=== PATIENT | female | born 1960 | race Caucasian/White ===

== ENCOUNTER → 2023-11-07 06:56 | Outpatient (REF) | payer OTHER, SELFPAY ==
[2023-11-07 08:22] LABS: Albumin 4.7 g/dl (3.5-5.0); Blood Urea Nitrogen 44 mg/dl (7-17); Calcium 9.9 mg/dl (8.4-10.2); Carbon Dioxide 24 mmol/L (22-30); Chloride 109 mmol/L (98-107); Glucose 87 mg/dl (70-99); Phosphorus 4.8 mg/dl (2.5-4.5); Potassium 5.5 mmol/L (3.5-5.1); Sodium 139 mmol/L (135-145); eGFR 23.16
[2023-11-07 11:19] LABS: Protein/creatinine Ratio 1.3; Urine Protein 62 mg/dl
== END ==
LOC: REG 06:56
PROVIDERS: ATTENDING PHYSICIAN Specialist; FAMILY PHYSICIAN Family Medicine
DX: I10 Essential (primary) hypertension (principal)
CPT/HCPCS: 36415; 80069; 82570; 84156

== ENCOUNTER → 2024-02-17 07:22 | Outpatient (REF) | payer MEDICARE, SELFPAY ==
[2024-02-17 08:12] LABS: Hematocrit 30.5 % (37.0-47.0); Hemoglobin 9.9 g/dL (12.0-16.0); Mean Corp Hgb Conc. 32.5 g/dL (33.0-37.0); Mean Corpuscular Hgb 31.8 pg (27.0-31.0); Mean Corpuscular Volume 98.1 fL (81.0-99.0); Mean Platelet Volume 11.8 fL (7.4-10.4); Platelet Count 123 10^3/uL (130-400); Red Blood Cell Count 3.11 10^6/uL (4.20-5.40); Red Cell Dist. Width 12.7 % (11.5-14.5); White Blood Cell Count 4.3 10^3/uL (4.8-10.8)
[2024-02-17 09:12] LABS: Albumin 4.4 g/dl (3.5-5.0); Blood Urea Nitrogen 51 mg/dl (7-17); Calcium 9.5 mg/dl (8.4-10.2); Carbon Dioxide 22 mmol/L (22-30); Chloride 110 mmol/L (98-107); Glucose 96 mg/dl (70-99); Phosphorus 4.6 mg/dl (2.5-4.5); Potassium 4.9 mmol/L (3.5-5.1); Sodium 141 mmol/L (135-145); Total Cholesterol 246 mg/dl (50-199); Triglyceride 56 mg/dl (10-149); Very Low Density Lipoprotein 11 mg/dl (0-30); eGFR 20.82
[2024-02-17 09:22] LABS: HDL Cholesterol 112 mg/dl; LDL Cholesterol, Calculated 123 mg/dl
[2024-02-19 10:55] LABS: Intact PTH 98.4 pg/ml (13.6-85.8)
== END ==
LOC: REG 07:22
PROVIDERS: ATTENDING PHYSICIAN Specialist; FAMILY PHYSICIAN Family Medicine
DX: I10 Essential (primary) hypertension (principal)
CPT/HCPCS: 36415; 80061; 80069; 83970; 85027

== ENCOUNTER → 2024-05-05 07:13 | Outpatient (REF) | payer MEDICARE, SELFPAY ==
[2024-05-05 08:40] LABS: % Eosinophils 4.4 % (0-6); % Immature Granulocytes 0.2 % (0-0.5); % Lymphocytes 26.9 % (20.5-51.1); % Monocytes 9.7 % (1.7-9.3); % Neutrophils 57.8 % (42.2-75.2); Absolute Basophils 0.1 10^3/uL (0-0.2); Absolute Eosinophils 0.2 10^3/uL (0-0.7); Absolute Lymphocytes 1.3 10^3/uL (1.2-3.4); Absolute Monocytes 0.5 10^3/uL (0.1-0.6); Absolute Neutrophils 2.9 10^3/uL (1.4-6.5); Hematocrit 29.5 % (37.0-47.0); Hemoglobin 9.4 g/dL (12.0-16.0); Mean Corp Hgb Conc. 31.9 g/dL (33.0-37.0); Mean Corpuscular Hgb 31.4 pg (27.0-31.0); Mean Corpuscular Volume 98.7 fL (81.0-99.0); Mean Platelet Volume 12.2 fL (7.4-10.4); Nucleated Red Blood Cells % 0 %; Platelet Count 120 10^3/uL (130-400); Red Blood Cell Count 2.99 10^6/uL (4.20-5.40); Red Cell Dist. Width 13.2 % (11.5-14.5)
[2024-05-05 09:07] LABS: Albumin 4.5 g/dl (3.5-5.0); Blood Urea Nitrogen 42 mg/dl (7-17); Calcium 9.1 mg/dl (8.4-10.2); Carbon Dioxide 24 mmol/L (22-30); Chloride 106 mmol/L (98-107); Glucose 88 mg/dl (70-99); Phosphorus 4.4 mg/dl (2.5-4.5); Potassium 5.7 mmol/L (3.5-5.1); Sodium 142 mmol/L (135-145); eGFR 21.87
[2024-05-05 10:44] LABS: Urine Protein 35 mg/dl
== END ==
LOC: REG 07:13
PROVIDERS: ATTENDING PHYSICIAN Specialist; FAMILY PHYSICIAN Family Medicine
DX: I10 Essential (primary) hypertension (principal); E78.5 Hyperlipidemia, unspecified; N18.4 Chronic kidney disease, stage 4 (severe)
CPT/HCPCS: 36415; 80069; 82570; 84156; 85025

== ENCOUNTER → 2024-07-27 09:55 | Outpatient (REF) | payer MEDICARE, SELFPAY ==
[2024-07-27 11:07] LABS: % Basophils 0.2 % (0-2); % Eosinophils 0.7 % (0-6); % Immature Granulocytes 0.4 % (0-0.5); % Lymphocytes 7.5 % (20.5-51.1); % Monocytes 14.2 % (1.7-9.3); Absolute Eosinophils 0.1 10^3/uL (0-0.7); Absolute Lymphocytes 0.6 10^3/uL (1.2-3.4); Absolute Monocytes 1.1 10^3/uL (0.1-0.6); Absolute Neutrophils 6.2 10^3/uL (1.4-6.5); Hematocrit 27.6 % (37.0-47.0); Mean Corp Hgb Conc. 32.6 g/dL (33.0-37.0); Mean Corpuscular Hgb 31.9 pg (27.0-31.0); Mean Corpuscular Volume 97.9 fL (81.0-99.0); Mean Platelet Volume 11.6 fL (7.4-10.4); Nucleated Red Blood Cells % 0 %; Platelet Count 107 10^3/uL (130-400); Red Blood Cell Count 2.82 10^6/uL (4.20-5.40); Red Cell Dist. Width 13.9 % (11.5-14.5)
[2024-07-27 11:36] LABS: ALT (SGPT) 47 U/L (0-35); AST (SGOT) 47 U/L (14-36); Alkaline Phosphatase 120 U/L (38-126); Blood Urea Nitrogen 60 mg/dl (7-17); Calcium 9.1 mg/dl (8.4-10.2); Carbon Dioxide 16 mmol/L (22-30); Chloride 104 mmol/L (98-107); Glucose 112 mg/dl (70-99); HDL Cholesterol 53 mg/dl; Iron 30 ug/dl (37-170); LDL Cholesterol, Calculated 110 mg/dl; Phosphorus 4.7 mg/dl (2.5-4.5); Potassium 4.8 mmol/L (3.5-5.1); Sodium 137 mmol/L (135-145); Total Bilirubin 0.8 mg/dl (0.2-1.3); Total Cholesterol 185 mg/dl (50-199); Total Protein 6.5 g/dl (6.3-8.2); Triglyceride 111 mg/dl (10-149); Very Low Density Lipoprotein 22 mg/dl (0-30); eGFR 11.84
[2024-07-27 11:45] LABS: Percent Saturation 12 % (20-50); Total Iron Binding Capacity 240 ug/dl (265-497)
[2024-07-27 12:03] LABS: TSH Reflex To Free T4 1.06 uIU/ml (0.47-4.68)
== END ==
LOC: REG 09:55
PROVIDERS: ATTENDING PHYSICIAN Specialist; FAMILY PHYSICIAN Family Medicine
DX: I10 Essential (primary) hypertension (principal); E78.5 Hyperlipidemia, unspecified; N18.4 Chronic kidney disease, stage 4 (severe)
CPT/HCPCS: 36415; 80053; 80061; 82728; 83540; 83550; 84100; 84443; 85025

== ENCOUNTER → 2024-07-30 07:15 | Outpatient (REF) | payer MEDICARE, SELFPAY | LOC: REG 07:15 | PROVIDERS: ATTENDING PHYSICIAN Specialist; FAMILY PHYSICIAN Family Medicine | DX: R30.0 Dysuria (principal) | CPT/HCPCS: 87077; 87086; 87186 ==

== ENCOUNTER 2024-07-31 16:24 | Inpatient (IN) | payer MEDICARE, SELFPAY ==
[2024-07-31] VITALS (8 sets, daily range): BP systolic 132–171; BP diastolic 85–105; BMI 16.8; BMI 16.1
[2024-07-31 12:47] LABS: % Basophils 0.6 % (0-2); % Eosinophils 2.9 % (0-6); % Immature Granulocytes 0.8 % (0-0.5); % Lymphocytes 13.5 % (20.5-51.1); % Monocytes 9.9 % (1.7-9.3); % Neutrophils 72.3 % (42.2-75.2); Absolute Eosinophils 0.2 10^3/uL (0-0.7); Absolute Immature Granulocytes 0.1 10^3/uL (0-0.05); Absolute Lymphocytes 0.9 10^3/uL (1.2-3.4); Absolute Monocytes 0.6 10^3/uL (0.1-0.6); Absolute Neutrophils 4.6 10^3/uL (1.4-6.5); Hematocrit 25.7 % (37.0-47.0); Hemoglobin 8.1 g/dL (12.0-16.0); Mean Corp Hgb Conc. 31.5 g/dL (33.0-37.0); Mean Corpuscular Volume 98.5 fL (81.0-99.0); Mean Platelet Volume 10.7 fL (7.4-10.4); Nucleated Red Blood Cells % 0 %; Platelet Count 226 10^3/uL (130-400); Red Blood Cell Count 2.61 10^6/uL (4.20-5.40); Red Cell Dist. Width 14.6 % (11.5-14.5); White Blood Cell Count 6.3 10^3/uL (4.8-10.8)
[2024-07-31 12:49] LABS: ALT (SGPT) 27 U/L (0-35); AST (SGOT) 19 U/L (14-36); Albumin 3.7 g/dl (3.5-5.0); Alkaline Phosphatase 99 U/L (38-126); Blood Urea Nitrogen 73 mg/dl (7-17); Calcium 8.6 mg/dl (8.4-10.2); Carbon Dioxide 17 mmol/L (22-30); Chloride 109 mmol/L (98-107); Glucose 108 mg/dl (70-99); Potassium 5.8 mmol/L (3.5-5.1); Sodium 140 mmol/L (135-145); Total Bilirubin 0.6 mg/dl (0.2-1.3); Total Protein 6.2 g/dl (6.3-8.2)
--- NOTE | 2024-07-31 13:54 | ED.GENMED ---
History of Present Illness
General
Chief Complaint: Abnormal Lab Value
Time Seen by Provider: 07/31/24 13:42
History of Present Illness
History of Present Illness:
Patient is a 64-year-old woman with history of CKD with baseline creatinine of 2, hypertension presenting to the emergency department with abnormal blood work. Per patient patient had routine blood work done that showed her creatinine worsened a
few days ago. They talk to her segment assembler who advised her to stop taking one of her antihypertensives. We repleted blood work and it was worse so they advised her to come to the emergency department for further evaluation. Patient states that
she has been eating and drinking like normal. If anything she states that she is been trying to drink more water. She does note that she has a recurrent UTI that there unable to fully control. She states that about 3 weeks ago she was on 2
different rounds of antibiotics. She is having ongoing urinary frequency chills and back pain. She is not currently on antibiotics. He did send a urine culture a few days ago. Pending the results of the culture and I will start her on different
antibiotics.
Past History
Past History
ED Past Medical History: CVA (Aphasia right sided involement), HTN and Other (Headaches, Hydrocephalus ,Intracranial bleed, PNA, Anemia, UTI, CKD, )
ED Past Surgical History: Orthopedic (Finger surgery right hand) and Other (Lung collapse with Surgery)
Social History
Tobacco: Non-smoker
Alcohol: Occasional
Drug: None
Personal:
Living: with family
Family History
Family History: Other (Noncontributory)
Phy Exam
Physical Exam
Physical Exam:
GENERAL: in no acute distress
HEENT: normocephalic, extraocular movements intact, moist oral mucosa
NECK: normal inspection
RESPIRATORY: no respiratory distress, clear to auscultation bilaterally
CARDIOVASCULAR: regular rate and rhythm
ABDOMEN/: soft, non-distended, non-tender to palpation, no rebound or guarding, no CVA tenderness
EXTREMITIES: non-tender, no edema/swelling
NEUROLOGIC: awake and alert, moves all extremities
SKIN: warm
Course
Orders/Labs/Results
Orders:
Orders
07/31/24 12:19
Electrocardiogram (*1) Urgent
Reason for Study: Other
Other Reason for Exam: Possible Sepsis
Cardiac Monitoring- Treatment ONCE
EKG- Treatment ONCE
IV Insert/Care/Rem.- Treatment PRN
O2 Therapy [RESP] Urgent
Titrate/Wean O2 to maintain O2 sat greater than (%): 93
Special Instructions: TO MAINTAIN CONTINUOUS O2 SATS > OR = 93%
Pulse Ox/cont/shift [RESP] Urgent
Quantity: 1
Special Instructions: CONTINUOUS
07/31/24 12:26
Type+Screen Urgent
Complete Blood Count/With Diff Urgent
Comprehensive Metabolic Panel Urgent
07/31/24 13:44
Dextrose 50%-Water [Dextrose 50% Syringe] 12.5 grams IV [id number] PRN
Dextrose 50%-Water [Dextrose 50% Syringe] 25 grams IV NOW STA
Insulin Human Regular [Novolin R] 5 units IV NOW STA
Sodium Bicarbonate 50 meq IV NOW STA
07/31/24 13:45
Bedside Glucose PRE IV Insulin- HyperK+ NOW
07/31/24 13:53
Renal & Bladder US [US Renal With Bladder] Urgent
Comment:
Reason For Exam: elevated creat, back pain uti sx
07/31/24 14:42
Urinalysis Reflex To Culture Urgent
Date Specimen was Collected: 07/31/24
Time Specimen was Collected: 12:19
Urine Microscopic Reflex Cult Urgent
Urine Culture Urgent
TELMA Source: U
Specimen Description:
Date Specimen was Collected: 07/31/24
Time Specimen was Collected: 12:19
07/31/24 15:10
CefTRIAXone [Rocephin] 1,000 mg IV NOW STA
07/31/24 15:15
Bedside Glucose POST IV Insulin- HyperK+ Q1HX2,Q2HX2
07/31/24 16:15
Potassium Urgent
Comment: draw 2 hours after regular insulin IV administration
Abnormal Lab Results
07/31/24 07/31/24 07/31/24
12:26 14:29 14:42
RBC 2.61 L 10^6/uL
(4.20-5.40)
Hgb 8.1 L g/dL
(12.0-16.0)
Hct 25.7 L %
(37.0-47.0)
MCHC 31.5 L g/dL
(33.0-37.0)
RDW 14.6 H %
(11.5-14.5)
MPV 10.7 H fL
(7.4-10.4)
Abs Immat Gran (auto) 0.1 H 10^3/uL
(0-0.05)
Absolute Lymphs (auto) 0.9 L 10^3/uL
(1.2-3.4)
Immature Gran % 0.8 H %
(0-0.5)
Lymphocytes % 13.5 L %
(20.5-51.1)
Monocytes % 9.9 H %
(1.7-9.3)
Potassium 5.8 H mmol/L
(3.5-5.1)
Chloride 109 H mmol/L
(98-107)
Carbon Dioxide 17 L mmol/L
(22-30)
BUN 73 H mg/dl
(7-17)
Creatinine 3.8 H mg/dL
(0.6-1.0)
Glucose 108 H mg/dl
(70-99)
Total Protein 6.2 L g/dl
(6.3-8.2)
Ur Occult Blood Reflex Trace A
(Negative)
Leukocyte Esterase Rfl 2+ A
(Negative)
Urine WBC (Reflex) 70-80 A /HPF
(0-5)
Urine Bacteria (Reflex) Many A
(Negative)
Urine Glucose 2+ A
(Negative)
Urine Albumin (Reflex) 1+ A
(Neg - Trace)
POC Glucose 107 H mg/dl
(70-99)
07/31/24
15:06
RBC
Hgb
Hct
MCHC
RDW
MPV
Abs Immat Gran (auto)
Absolute Lymphs (auto)
Immature Gran %
Lymphocytes %
Monocytes %
Potassium
Chloride
Carbon Dioxide
BUN
Creatinine
Glucose
Total Protein
Ur Occult Blood Reflex
Leukocyte Esterase Rfl
Urine WBC (Reflex)
Urine Bacteria (Reflex)
Urine Glucose
Urine Albumin (Reflex)
POC Glucose 173 H mg/dl
(70-99)
07/31/24 12:26
Vital Signs
Initial and Last Documented VS:
Initial Vital Signs
Temp Pulse Resp BP Pulse Ox
97.8 F 82 18 152/98 95
07/31/24 12:12 07/31/24 12:12 07/31/24 12:12 07/31/24 12:12 07/31/24 12:12
Last Documented Vital Signs
Temp Pulse Resp BP Pulse Ox
97.8 F 80 18 161/97 100
07/31/24 12:12 07/31/24 14:45 07/31/24 14:45 07/31/24 14:37 07/31/24 14:45
MDM/Problems Addressed
Differential Diagnosis Includes:
Patient is a 64-year-old woman history of CKD presenting to the emergency department worsening creatinine. On arrival vitals and exam is reassuring. Differential is broad but consists of progression of CKD versus UTI versus obstruction such as
stone. Blood work obtained prior to evaluation does show that her creatinine has doubled. She also has hyperkalemia at 5.8. Will give insulin dextrose as well as sodium bicarb. EKG per my interpretation with no peaked T waves so we will hold off
on calcium. Given the UTI symptoms with a creatinine will check renal ultrasound. Will obtain urine here as well as evaluate for her UTI.
*Critical Care Note
Total Time (30-74mins, 75-104mins- exclusive of procedures): Not Applicable
Update Note
Update Note:
Urine here does appear slightly infected. Based on patient's culture from yesterday she is growing gram-negative rods. Will start antibiotics based on prior cultures. Discussed with hospitalist accepted patient for admission. Renal ultrasound
pending at this time
ED Attending Note
-
Portions of this chart may have been created with voice recognition software.� Occasional wrong word or��sound alike� substitutions may have occurred due to the inherent limitations of voice recognition software.
Discharge Plan
Departure
Patient Disposition: Admit
Date of Disposition: 07/31/24
Time of Disposition: 15:11
Presentation/result/management discussed w/ accepting MD/DO: Hospitalist
Discharge Problem:
BHAVANI (acute kidney injury), Acute UTI
Prescriptions:
No Action
'Bp Med Starting With D'
1 tab PO BID
labetalol 200 mg Tablet
200 mg PO QID
sulfamethoxazole-trimethoprim [Bactrim DS] 800-160 mg tablet
1 tab PO BID Qty: 13 0RF
Referrals:
Marily Magana MD [Family Provider] -
Interventions
Interventions:
*Risk Screen - Suicide Last Done: 07/31/24 12:12
*General Assessment Last Done: 07/31/24 12:12
*Neglect/Abuse Screening Last Done: 07/31/24 12:12
*ED COVID-19 Vaccine History Last Done: 07/31/24 14:27
Discharge Date and Time
Print Language: CAMEROONIAN
[2024-07-31] MEDS: SODIUM BICARBONATE 50 MEQ IV (14:31)
[2024-07-31] MEDS: DEXTROSE 50% SYRINGE 25 GRAMS IV (14:35)
[2024-07-31] MEDS: NOVOLIN R 5 UNITS IV (14:35)
[2024-07-31 14:37] LABS: Glucose - Point of Care 107 mg/dl (70-99)
[2024-07-31 14:53] LABS: Urine Albumin 1+ (Neg - Trace); Urine Bilirubin Negative (Negative); Urine Character Slightly Cloudy (Clear); Urine Color Yellow; Urine Glucose 2+ (Negative); Urine Ketone Negative (Negative); Urine Leukocyte 2+ (Negative); Urine Nitrite Negative (Negative); Urine Occult Blood Trace (Negative); Urine Urobilinogen Negative (Neg - 1+)
[2024-07-31 15:07] LABS: Glucose - Point of Care 173 mg/dl (70-99)
[2024-07-31 15:08] LABS: Urine Squamous Cell 0-2 /LPF (Few)
[2024-07-31 15:10] LABS: Urine Bacteria Many (Negative); Urine Red Blood Cell 0-2 /HPF (0-2); Urine White Cell 70-80 /HPF (0-5)
[2024-07-31] MEDS: ROCEPHIN 1000 MG IV (15:35)
--- NOTE | 2024-07-31 16:10 | HPS.HSE ---
Addendum entered and electronically signed by Iain Ramirez MD 07/31/24 16:26:
I saw and examined the patient.
The NEUROSURGEON's note was reviewed and I agree with the note.
Comment:
64 female past medical history of hypertension, NPH, CKD who is presenting from primary doctor office with abnormal lab value. Patient was found to have a elevated creatinine by outpatient blood work. Patient says she is eating and drinking fine.
States of increasing urinary urgency and also states of increased nocturia candidate. Only drinks 1 cup of coffee a day. Denies drinking excessive amount of fluids. Tolerating diet without difficulty. States of constant mouth dryness.
Gen: nad, cachetic,
heent-white lesion noted on b/l side of tongue
cards s1 s2 RR
Pulm cta bl
ext no edema
neuro aox3. non focal grossly intact.
psych pleasant.
Impression
Acute kidney injury on chronic kidney disease
Anemia
Suspected UTI
Primary hypertension
NPH
Plan
Start patient on gentle IV fluids with normal saline
Renal ultrasound pending
Check urine studies
Nephrology evaluation
Continue antibiotics and follow cultures
Check anemia panel
Continue with home blood pressure regimen
DVT prophylaxis heparin subcu
I spent a total of 80 minutes with the patient or on the floor. More than 50% of this time involved counseling and coordination of care.
Original Note:
Family Physician
-
Family Physician: Marily Magana MD
Chief Complaint
-
Abnormal Blood Work
History of Present Illness
Patient is a 64-year-old male past medical history of hypertension and CKD stage IV who presents with abnormal blood work. Patient reports she had blood work completed earlier this week which revealed elevated creatinine from her baseline. At that
time she was instructed to stop her irbesartan and Farxiga. Patient had blood work completed yesterday showing her creatinine was still elevated and she was instructed by her PCP and automobile body repairer to come to the emergency department for evaluation.
Patient has been complaining of urinary frequency for the last month or so. She was treated with 2 courses of antibiotics, Bactrim in early June and cefuroxime at the end of June. Despite 2 courses of antibiotics that she reports continued
urinary frequency. She reports some associated back pain and chills. She denies dysuria. She feels as though her oral intake is adequate, and denies any vomiting or diarrhea.
Medical History
Past Medical History
Past Medical History: Reports Other
Additional Past Medical History:
CVA (Right Cerebellar and Brainstem Hemorrhage)
Essential Hypertension
CKD Stage IV
Anemia of Chronic Disease
Past Surgical History: Reports Other
Additional Past Surgical History:
Craniotomy
Finger Surgery
'Collapsed Lung Surgery'
Social History
Tobacco: Non-smoker
Alcohol: Occasional
Family History
Family History: Not pertinent
Allergies / Home Medications
Allergies reflects when Allergies were last updated in [employer] [place].
Home Medications with original date entered in [employer] [place]
Allergy/Medication List:
Allergies
Allergy/AdvReac Type Severity Reaction Status Date / Time
No Known Allergies Allergy Verified 01/08/23 22:00
Home Medications
doxazosin 2 mg tablet 2 mg PO BID 01/09/23
labetalol 200 mg tablet 400 mg PO TID 01/09/23
Review of Systems
-
A 12 point ROS was completed and negative except as noted: Yes
Constitutional: Denies Fever or Chills
Respiratory: Denies Cough or Trouble Breathing
Cardiac: Denies Chest Pain or Palpitations
Abdomen/GI: Denies Abdominal Pain, Nausea, Vomiting or Diarrhea
Physical Exam
Vital Signs
Vital Signs
Temp Pulse Resp BP Pulse Ox
97.8 F 80 18 161/97 100
07/31/24 12:12 07/31/24 14:45 07/31/24 14:45 07/31/24 14:37 07/31/24 14:45
Physical Exam
General: Comfortable and Conversant
HEENT: Anicteric and Other (Lips and Tongue appear dry; White material noted on side of tongue and corners of mouth)
Respiratory: Clear and Non Labored Respirations
Cardiac: S1/S2 and Regular Rhythm
GI: Soft and Non Tender
Rectal: Deferred by Provider
Genito-urinary: No costovertebral tender
Musculoskeletal: No Clubbing and No Cyanosis
Skin: Warm and Dry
Neuro: Awake, Alert, Oriented and Nonfocal/grossly intact
Psych: Calm
Laboratory Results
-
07/31/24 12:26
Laboratory Results
Total Bilirubin 0.6 mg/dl (0.2-1.3) 07/31/24 12:26
AST 19 U/L (14-36) 07/31/24 12:26
ALT 27 U/L (0-35) 07/31/24 12:26
Alkaline Phosphatase 99 U/L (38-126) 07/31/24 12:26
Data Reviewed
-
Ultrasound: Report Reviewed by me
Lab Data: Labs Reviewed by me
Impression/Plan
-
Hyperkalemia / Acute Kidney Injury on CKD IV
-Patient given insulin + dextrose in ED for hyperkalemia - Recheck potassium later this evening
-Continue IVFs
-Check urine sodium, urine creatinine and urine eosinophils
-Consult Nephrology
Urinary Tract Infection
-Urine culture from yesterday with Gram-Negative Bacilli
-Conitnue ceftriaxone
Possible Thrush
-Start nystatin, if no improvement by tomorrow would plan to stop
Essential Hypertension
-Continue doxazosin and labetalol
Chronic Anemia - Hgb slightly lower than previously
-Check iron, ferritin, TIBC and Folate
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
DVT proph: SCDs
Code Status: Full Code
[2024-07-31 16:22] LABS: Glucose - Point of Care 56 mg/dl (70-99)
[2024-07-31 16:36] LABS: Glucose - Point of Care 72 mg/dl (70-99)
[2024-07-31 17:02] LABS: Glucose - Point of Care 111 mg/dl (70-99)
[2024-07-31 17:08] LABS: Body Fluid for Eosinophils No Eosinophils seen
[2024-07-31 17:09] LABS: Iron 66 ug/dl (37-170)
[2024-07-31 17:18] LABS: Percent Saturation 27 % (20-50); Total Iron Binding Capacity 239 ug/dl (265-497)
[2024-07-31 17:58] LABS: Urine Sodium 41 mmol/L (30-90)
--- NOTE | 2024-07-31 18:30 | PTCARENOTE ---
Pt presents to room on stretcher. OOB w/ cane and standby assist of 1. Pt stammering at times and having some trouble answering questions at times, but awake and alert. Neurological history noted. Pt denies pain. at bedside. Admission
completed.
[2024-07-31 18:38] LABS: Folate 8.9 ng/ml (2.76-20); Vitamin B12 305 pg/ml (239-931)
[2024-07-31] MEDS: MYCOSTATIN ORAL SUSPENSION 5 ML PO ×2 (18:59→21:02)
[2024-07-31] MEDS: NSS 1000 IV (18:59)
[2024-07-31] MEDS: CARDURA 2 MG PO (19:28)
[2024-07-31 19:35] LABS: Glucose - Point of Care 115 mg/dl (70-99)
[2024-07-31] MEDS: TRANDATE 400 MG PO (20:52)
[2024-07-31 21:27] LABS: Glucose - Point of Care 117 mg/dl (70-99)
[2024-08-01 03:00] VITALS: BP 132/82
[2024-08-01 05:48] VITALS: BMI 16.0
[2024-08-01 07:31] VITALS: BP 138/88
[2024-08-01] MEDS: VITAMIN B-12 1000 MCG PO (08:49)
[2024-08-01] MEDS: MYCOSTATIN ORAL SUSPENSION 5 ML PO ×4 (08:49→21:01)
[2024-08-01] MEDS: TRANDATE 400 MG PO ×3 (08:49→21:01)
[2024-08-01] MEDS: CARDURA 2 MG PO ×2 (08:50→21:02)
[2024-08-01 09:43] LABS: Hematocrit 23.7 % (37.0-47.0); Hemoglobin 7.7 g/dL (12.0-16.0); Mean Corp Hgb Conc. 32.5 g/dL (33.0-37.0); Mean Corpuscular Hgb 31.4 pg (27.0-31.0); Mean Corpuscular Volume 96.7 fL (81.0-99.0); Mean Platelet Volume 10.6 fL (7.4-10.4); Platelet Count 221 10^3/uL (130-400); Red Blood Cell Count 2.45 10^6/uL (4.20-5.40); Red Cell Dist. Width 14.5 % (11.5-14.5); White Blood Cell Count 5.6 10^3/uL (4.8-10.8)
[2024-08-01 10:08] LABS: Blood Urea Nitrogen 65 mg/dl (7-17); Calcium 8.8 mg/dl (8.4-10.2); Carbon Dioxide 17 mmol/L (22-30); Chloride 112 mmol/L (98-107); Estimated Creatinine Clearance 12 ml/min; Glucose 108 mg/dl (70-99); Magnesium 1.9 mg/dl (1.6-2.3); Potassium 5.4 mmol/L (3.5-5.1); Sodium 141 mmol/L (135-145)
--- NOTE | 2024-08-01 10:55 | W.PN.HOSP.TC ---
Today's Communication/Plan
-
nehpro recs
Cr improving
start bicarb
lokelma
FOBT
Assessment / Plan
Assessment / Plan
General: Comfortable and Conversant
HEENT: Anicteric and Other (Lips and Tongue appear dry; White material noted on side of tongue and corners of mouth)
Respiratory: Clear and Non Labored Respirations
Cardiac: S1/S2 and Regular Rhythm
GI: Soft and Non Tender
Rectal: Deferred by Provider
Genito-urinary: No costovertebral tender
Musculoskeletal: No Clubbing and No Cyanosis
Skin: Warm and Dry
Neuro: Awake, Alert, Oriented and Nonfocal/grossly intact
Psych: Calm
Hyperkalemia / Acute Kidney Injury on CKD IV
Anion gap metabolic acdiosis
-Patient given insulin + dextrose in ED for hyperkalemia
-K downtrended but up mildly now. Lokelma ordered
-DC further IVF.
-Start po bicarb
-renal US negative for obstruction
-Check urine sodium, urine creatinine and urine eosinophils
-Consult Nephrology
E.coli Urinary Tract Infection
-Conitnue ceftriaxone
Possible Thrush
-Start nystatin,
Essential Hypertension
-Continue doxazosin and labetalol and Clonidine
Chronic Anemia - Hgb slightly lower than previously
-B12 low and started on supplementation
-may need EPO
-FOBT pending
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
DVT proph: SCDs
Code Status: Full Code
Anticipated Discharge: 24 - 48 hours
Subjective/Interval History
-
Date of Service: August 01, 2024
feeling better
states mouth feel dry
Objective Data
-
Labs:
Laboratory Results
08/01/24
09:11
WBC 5.6
Hgb 7.7 L
Hct 23.7 L
Plt Count 221
Sodium 141
Potassium 5.4 H
Chloride 112 H
Carbon Dioxide 17 L
BUN 65 H
Creatinine 3.4 H
Glucose 108 H
Calcium 8.8
Vital Signs:
Vital Signs
Temp Pulse Resp BP Pulse Ox
97.6 F 74 18 138/88 100
08/01/24 07:31 08/01/24 08:50 08/01/24 07:31 08/01/24 08:50 08/01/24 07:31
I&O
07/31/24 08/01/24 08/02/24
06:59 06:59 06:59
Intake Total 1250 / 1250
Balance 1250 / 1250
Data Reviewed
-
Total Time Spent with Patient (in minutes): 55
[2024-08-01 10:57] LABS: Hepatitis C Antibody Negative (Negative)
[2024-08-01 11:08] VITALS: BP 129/80
[2024-08-01] MEDS: SODIUM BICARBONATE 650 MG PO ×3 (11:26→21:01)
[2024-08-01] MEDS: LOKELMA 10 GRAM PO (11:27)
[2024-08-01 15:46] VITALS: BP 164/95
[2024-08-01] MEDS: STERILE WATER FOR INJECTION 10 ML IV (16:34)
[2024-08-01] MEDS: ROCEPHIN 1000 MG IV (16:34)
--- NOTE | 2024-08-01 17:26 | CM ---
Alert awake oriented patient who lives with her Fer Arora who lives in a2 story home with 3 stesp to enter and 12 steps to bed/bathroom. steps to enter.She is independent in showering and assisted with meds and meals.Offered VN she declined.
Cane
Never had VN/Hx of [place]
Pharmacy [facility]
PCP Dr Magana
PLAN Home no needs
--- NOTE | 2024-08-01 17:54 | W.CON.NEPH ---
Consultation
-
Date/Time Consultation Requested: July 31, 2024 at 1800
Date/Time Consultation Performed: August 01, 2024 at 5 PM
Requesting Provider: Cata Holbrook PA-C
Performing Provider: Dr. Eladio bunn
Reason for Consultation: acute and chronic kidney disease and hyperkalemia
Medical History
-
Chief Complaint: acute kidney injury
History of Present Illness:
64-year-old woman with history of CKD with baseline creatinine of 2, hypertension presenting to the emergency department with abnormal blood work. she's found to have hyperkalemia and a creatinine of 4+. She found have urinary tract infection
growing E. coli. She's had recurrent infections and has been treated since May with antibiotics with no resolution. She is also on SGLT2 inhibitor she's been on it for about 6 to 8 months that had been discontinued. She tells me she that she
does not drink much water.
renal consul for acute or chronic kidney disease
Past Medical History
CVA (Right Cerebellar and Brainstem Hemorrhage)
Essential Hypertension
CKD Stage IV
Anemia of Chronic Disease
Social History
Tobacco: Non-Smoker
Alcohol: None
Drug: None
Family History
Family History: Not Pertinent
Allergies / Home Medications
Allergy/AdvReac Type Severity Reaction Status Date / Time
No Known Allergies Allergy Verified 01/08/23 22:00
�Medication �Instructions �Recorded �Confirmed �Type
doxazosin 2 mg tablet 2 mg PO BID 01/09/23 07/31/24 History
labetalol 200 mg tablet 400 mg PO TID 01/09/23 07/31/24 History
clonidine HCl 0.1 mg tablet 0.1 mg PO BID 07/31/24 07/31/24 History
Review of Systems
-
No urinary frequency urgency
All other systems: Negative unless noted
Physical Exam
Vital Signs
Vital Signs
Temp Pulse Resp BP Pulse Ox
98.1 F 79 18 164/95 100
08/01/24 15:46 08/01/24 16:33 08/01/24 15:46 08/01/24 16:33 08/01/24 15:46
Lab Results
WBC 5.6 10^3/uL (4.8-10.8) 08/01/24 09:11
RBC 2.45 10^6/uL (4.20-5.40) L 08/01/24 09:11
Hgb 7.7 g/dL (12.0-16.0) L 08/01/24 09:11
Hct 23.7 % (37.0-47.0) L 08/01/24 09:11
Plt Count 221 10^3/uL (130-400) 08/01/24 09:11
Sodium 141 mmol/L (135-145) 08/01/24 09:11
Potassium 5.4 mmol/L (3.5-5.1) H 08/01/24 09:11
Chloride 112 mmol/L (98-107) H 08/01/24 09:11
Carbon Dioxide 17 mmol/L (22-30) L 08/01/24 09:11
BUN 65 mg/dl (7-17) H 08/01/24 09:11
Creatinine 3.4 mg/dL (0.6-1.0) H 08/01/24 09:11
eGFR 14.40 08/01/24 09:11
Glucose 108 mg/dl (70-99) H 08/01/24 09:11
Calcium 8.8 mg/dl (8.4-10.2) 08/01/24 09:11
Albumin 3.7 g/dl (3.5-5.0) 07/31/24 12:26
Physical Exam
General no acute distress
HEENT no cephalic atraumatic extraocular muscle intact no scleral icterus no JVD neck supple
lungs clear to auscultation bilateral
heart regular S1-S2 positive
abdomen soft nontender positive bowel sounds
extremities no edema pulses present bilateral
Neurologically nonfocal alert and oriented x 3
Skin no lesions no abrasions no petechiae
Psych normal affect no bizarre behavior
Data Reviewed
-
Ultrasound: Image Personally Visualized and interpreted ( renal ultrasound no obstructive pathology with medical renal disease)
Labs: Labs Reviewed by me
Assessment/Plan
-
64-year-old woman with history of CKD with baseline creatinine of 2, hypertension presenting to the emergency department with abnormal blood work. she's found to have hyperkalemia and a creatinine of 4+. She found have urinary tract infection
growing E. coli. She's had recurrent infections and has been treated since May with antibiotics with no resolution. She is also on SGLT2 inhibitor
impression:
CVA (Right Cerebellar and Brainstem Hemorrhage)
Essential Hypertension
acute on CKD Stage IV
Anemia of Chronic Disease
plan.
Follows with Dr. Pugh for chronic kidney disease the baseline creatinine around 2.4
Creatinine peaked at four potassium was 5.8 improved with low, and IV fluids.
Creatinine Naila consultation down to 3.4.
continue antibiotic.
No indication for any further IV fluids at this time.
Continue to hold SGLT2 inhibitor.
Renal dose all medications appropriate for GFR to reach a steady state
[2024-08-01 19:35] VITALS: BP 127/80
[2024-08-01] MEDS: CATAPRES 0.1 MG PO (21:01)
[2024-08-01 23:46] VITALS: BP 139/81
[2024-08-02 03:25] VITALS: BP 144/87
[2024-08-02 06:00] VITALS: BMI 15.9
[2024-08-02 07:29] LABS: % Basophils 0.6 % (0-2); % Eosinophils 3.2 % (0-6); % Immature Granulocytes 1.1 % (0-0.5); % Lymphocytes 22.7 % (20.5-51.1); % Neutrophils 64.4 % (42.2-75.2); Absolute Eosinophils 0.2 10^3/uL (0-0.7); Absolute Immature Granulocytes 0.1 10^3/uL (0-0.05); Absolute Lymphocytes 1.2 10^3/uL (1.2-3.4); Absolute Monocytes 0.4 10^3/uL (0.1-0.6); Absolute Neutrophils 3.4 10^3/uL (1.4-6.5); Hematocrit 22.8 % (37.0-47.0); Hemoglobin 7.5 g/dL (12.0-16.0); Mean Corp Hgb Conc. 32.9 g/dL (33.0-37.0); Mean Corpuscular Hgb 31.6 pg (27.0-31.0); Mean Corpuscular Volume 96.2 fL (81.0-99.0); Mean Platelet Volume 10.6 fL (7.4-10.4); Nucleated Red Blood Cells % 0 %; Platelet Count 246 10^3/uL (130-400); Red Blood Cell Count 2.37 10^6/uL (4.20-5.40); Red Cell Dist. Width 14.4 % (11.5-14.5); White Blood Cell Count 5.3 10^3/uL (4.8-10.8)
[2024-08-02 07:54] VITALS: BP 146/88
[2024-08-02 08:03] LABS: Blood Urea Nitrogen 63 mg/dl (7-17); Calcium 8.9 mg/dl (8.4-10.2); Carbon Dioxide 18 mmol/L (22-30); Chloride 111 mmol/L (98-107); Estimated Creatinine Clearance 12 ml/min; Glucose 99 mg/dl (70-99); Potassium 5.1 mmol/L (3.5-5.1); Sodium 142 mmol/L (135-145)
[2024-08-02] MEDS: VITAMIN B-12 1000 MCG PO (08:42)
[2024-08-02] MEDS: SODIUM BICARBONATE 650 MG PO ×3 (08:42→22:06)
[2024-08-02] MEDS: MYCOSTATIN ORAL SUSPENSION 5 ML PO ×4 (08:42→22:05)
[2024-08-02] MEDS: TRANDATE 400 MG PO ×3 (08:42→22:07)
[2024-08-02] MEDS: CATAPRES 0.1 MG PO ×2 (08:43→20:04)
[2024-08-02] MEDS: CARDURA 2 MG PO ×2 (08:43→20:04)
[2024-08-02 11:14] VITALS: BP 118/82
--- NOTE | 2024-08-02 13:12 | W.PN.HOSP.TC ---
Addendum entered and electronically signed by Iain Ramirez MD 08/02/24 13:39:
Will add some hemolysis blood work. Reticulocyte count, hepato and LDH.
Original Note:
Today's Communication/Plan
-
trend cr
trend cbc
FOBT pending
nephro recs
cont home bp meds
Assessment / Plan
Assessment / Plan
General: Comfortable and Conversant
HEENT: Anicteric and Other (Lips and Tongue appear dry; White material noted on side of tongue and corners of mouth)
Respiratory: Clear and Non Labored Respirations
Cardiac: S1/S2 and Regular Rhythm
GI: Soft and Non Tender
Rectal: Deferred by Provider
Genito-urinary: No costovertebral tender
Musculoskeletal: No Clubbing and No Cyanosis
Skin: Warm and Dry
Neuro: Awake, Alert, Oriented and Nonfocal/grossly intact
Psych: Calm
Hyperkalemia / Acute Kidney Injury on CKD IV
Anion gap metabolic acdiosis
-Patient given insulin + dextrose in ED for hyperkalemia
-K downtrended but up mildly now. Lokelma ordered
-DC further IVF.
-Start po bicarb
-renal US negative for obstruction
-Cr stabilizing.
-Consult Nephrology
E.coli Urinary Tract Infection
-Conitnue ceftriaxone
Possible Thrush
-Start nystatin,
Essential Hypertension
-Continue doxazosin and labetalol and Clonidine
-BP at 118/82
Chronic Anemia - Hgb slightly lower than previously
-B12 low and started on supplementation
-may need EPO
-FOBT pending
-Had C-scope few years ago but poor prep.
-transfuse for Hgb <7.
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
DVT proph: SCDs
Code Status: Full Code
D/W with spouse at bedside in details.
Anticipated Discharge: 24 - 48 hours
Subjective/Interval History
-
Date of Service: August 02, 2024
states hx of anemia
no bm x 2-3 days
Objective Data
-
Labs:
Laboratory Results
08/02/24
06:37
WBC 5.3
Hgb 7.5 L
Hct 22.8 L
Plt Count 246
Sodium 142
Potassium 5.1
Chloride 111 H
Carbon Dioxide 18 L
BUN 63 H
Creatinine 3.4 H
Glucose 99
Calcium 8.9
Vital Signs:
Vital Signs
Temp Pulse Resp BP Pulse Ox
97.9 F 79 16 118/82 99
08/02/24 11:14 08/02/24 11:14 08/02/24 11:14 08/02/24 11:14 08/02/24 11:14
I&O
08/01/24 08/02/24 08/03/24
06:59 06:59 06:59
Intake Total 1250 / 1250 480 / 480
Balance 1250 / 1250 480 / 480
Data Reviewed
-
Total Time Spent with Patient (in minutes): 55
--- NOTE | 2024-08-02 13:56 | W.PN.NEPH.PH ---
Today's Communication / Plan
-
1 L of normal saline
Assessment/Plan
-
64-year-old woman with history of CKD with baseline creatinine of 2, hypertension presenting to the emergency department with abnormal blood work. she's found to have hyperkalemia and a creatinine of 4+. She found have urinary tract infection
growing E. coli. She's had recurrent infections and has been treated since May with antibiotics with no resolution. She is also on SGLT2 inhibitor
impression:
CVA (Right Cerebellar and Brainstem Hemorrhage)
Essential Hypertension
acute on CKD Stage IV
Anemia of Chronic Disease
plan.
Follows with Dr. Pugh for chronic kidney disease the baseline creatinine around 2.4
Creatinine peaked at four potassium was 5.8 improved with low, and IV fluids.
Creatinine Naila consultation down to 3.4.
continue antibiotic.
Continue to hold SGLT2 inhibitor.
Renal dose all medications appropriate for GFR to reach a steady state
Order 1 L of normal saline for today
-
-
Date of Service: August 02, 2024
CC / HPI / ROS
-
Chief Complaint:
acute or chronic kidney injury
History of Present Illness:
UTI E. coli with acute kidney injury improving
Review of Systems: .
No chest pain or shortness of breath no dysuria or frequency
Labs
-
Labs:
WBC 5.3 10^3/uL (4.8-10.8) 08/02/24 06:37
RBC 2.37 10^6/uL (4.20-5.40) L 08/02/24 06:37
Hgb 7.5 g/dL (12.0-16.0) L 08/02/24 06:37
Hct 22.8 % (37.0-47.0) L 08/02/24 06:37
Plt Count 246 10^3/uL (130-400) 08/02/24 06:37
Sodium 142 mmol/L (135-145) 08/02/24 06:37
Potassium 5.1 mmol/L (3.5-5.1) 08/02/24 06:37
Chloride 111 mmol/L (98-107) H 08/02/24 06:37
Carbon Dioxide 18 mmol/L (22-30) L 08/02/24 06:37
BUN 63 mg/dl (7-17) H 08/02/24 06:37
Creatinine 3.4 mg/dL (0.6-1.0) H 08/02/24 06:37
eGFR 14.40 08/02/24 06:37
Glucose 99 mg/dl (70-99) 08/02/24 06:37
Calcium 8.9 mg/dl (8.4-10.2) 08/02/24 06:37
Albumin 3.7 g/dl (3.5-5.0) 07/31/24 12:26
Physical Exam
-
Vital Signs:
Vital Signs
Temp Pulse Resp BP Pulse Ox
97.9 F 79 16 118/82 99
08/02/24 11:14 08/02/24 11:14 08/02/24 11:14 08/02/24 11:14 08/02/24 11:14
Respiratory:: Bilateral: CTA
Lung Excursion:: Normal
Abdomen:: Soft
Bowel Sounds:: Normal
Extremity Edema:: None: Bilateral:
Sauer Catheter: No
[2024-08-02] MEDS: NSS 1000 IV (14:13)
[2024-08-02 15:27] VITALS: BP 114/69
[2024-08-02] MEDS: STERILE WATER FOR INJECTION 10 ML IV (16:38)
[2024-08-02] MEDS: ROCEPHIN 1000 MG IV (16:38)
[2024-08-02 19:04] VITALS: BP 136/83
[2024-08-02 22:09] VITALS: BP 142/96
[2024-08-03] MEDS: NSS 1000 IV (00:03)
[2024-08-03 03:24] VITALS: BP 149/93
[2024-08-03 03:32] VITALS: BMI 16.2
[2024-08-03 07:20] VITALS: BP 137/83
[2024-08-03] MEDS: VITAMIN B-12 1000 MCG PO (08:06)
[2024-08-03] MEDS: TRANDATE 400 MG PO ×3 (08:06→21:31)
[2024-08-03] MEDS: SODIUM BICARBONATE 650 MG PO ×3 (08:06→21:31)
[2024-08-03] MEDS: CATAPRES 0.1 MG PO ×2 (08:07→20:05)
[2024-08-03] MEDS: CARDURA 2 MG PO ×2 (08:07→20:05)
[2024-08-03] MEDS: MYCOSTATIN ORAL SUSPENSION 5 ML PO ×4 (08:07→21:30)
[2024-08-03 09:01] LABS: % Basophils 0.7 % (0-2); % Eosinophils 3.7 % (0-6); % Immature Granulocytes 1.3 % (0-0.5); % Lymphocytes 19.9 % (20.5-51.1); % Monocytes 5.7 % (1.7-9.3); % Neutrophils 68.7 % (42.2-75.2); Absolute Eosinophils 0.2 10^3/uL (0-0.7); Absolute Immature Granulocytes 0.1 10^3/uL (0-0.05); Absolute Lymphocytes 1.1 10^3/uL (1.2-3.4); Absolute Monocytes 0.3 10^3/uL (0.1-0.6); Absolute Neutrophils 3.7 10^3/uL (1.4-6.5); Hematocrit 23.5 % (37.0-47.0); Hemoglobin 7.4 g/dL (12.0-16.0); Mean Corp Hgb Conc. 31.5 g/dL (33.0-37.0); Mean Corpuscular Hgb 31.4 pg (27.0-31.0); Mean Corpuscular Volume 99.6 fL (81.0-99.0); Mean Platelet Volume 10.3 fL (7.4-10.4); Nucleated Red Blood Cells % 0 %; Platelet Count 241 10^3/uL (130-400); Red Blood Cell Count 2.36 10^6/uL (4.20-5.40); Red Cell Dist. Width 14.6 % (11.5-14.5); Reticulocyte Count 1.1 % (0.4-2.8); White Blood Cell Count 5.4 10^3/uL (4.8-10.8)
[2024-08-03 09:14] LABS: Anisocytosis 1+; Normal RBC Morphology No; Ovalocytes 1+
[2024-08-03 09:15] LABS: Acanthocytes FEW; Hypochromasia 1+; Polychromasia 1+
[2024-08-03 09:28] LABS: Blood Urea Nitrogen 55 mg/dl (7-17); Calcium 8.5 mg/dl (8.4-10.2); Carbon Dioxide 17 mmol/L (22-30); Chloride 113 mmol/L (98-107); Estimated Creatinine Clearance 13 ml/min; Glucose 100 mg/dl (70-99); LDH 120 U/L (120-246); Sodium 143 mmol/L (135-145); eGFR 15.48
--- NOTE | 2024-08-03 09:54 | W.PN.HOSP.TC ---
Today's Communication/Plan
-
hold further IVF. received more than 1l
Hgb with some dilutional component
Nephro recs
cr improving
Assessment / Plan
Assessment / Plan
General: Comfortable and Conversant
HEENT: Anicteric and Other (Lips and Tongue appear dry; White material noted on side of tongue and corners of mouth)
Respiratory: Clear and Non Labored Respirations
Cardiac: S1/S2 and Regular Rhythm
GI: Soft and Non Tender
Rectal: Deferred by Provider
Genito-urinary: No costovertebral tender
Musculoskeletal: No Clubbing and No Cyanosis
Skin: Warm and Dry
Neuro: Awake, Alert, Oriented and Nonfocal/grossly intact
Psych: Calm
Hyperkalemia / Acute Kidney Injury on CKD IV
Anion gap metabolic acdiosis
-Patient given insulin + dextrose in ED for hyperkalemia
-K downtrended but up mildly now. Lokelma ordered
-received IVF per nephro.
-Start po bicarb
-renal US negative for obstruction
-Cr stabilizing and improved to 3.2
-Consult Nephrology
E.coli Urinary Tract Infection
-Conitnue ceftriaxone
Possible Thrush
-Start nystatin,
Essential Hypertension
-Continue doxazosin and labetalol and Clonidine
Chronic Anemia - Hgb slightly lower than previously
-B12 low and started on supplementation
-may need EPO
-FOBT pending
-Had C-scope few years ago but poor prep.
-transfuse for Hgb <7. LDH and retic normal. Hapto pending. doubt hemolysis. No luminal bleeding noted so far
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
DVT proph: SCDs
Code Status: Full Code
D/W with spouse at bedside in details on 08/02/24.
Anticipated Discharge: Within 24 hours
Subjective/Interval History
-
Date of Service: August 03, 2024
feeling better
Objective Data
-
Labs:
Laboratory Results
08/03/24
08:21
WBC 5.4
Hgb 7.4 L
Hct 23.5 L
Plt Count 241
Sodium 143
Potassium 5.0
Chloride 113 H
Carbon Dioxide 17 L
BUN 55 H
Creatinine 3.2 H
Glucose 100 H
Calcium 8.5
Vital Signs:
Vital Signs
Temp Pulse Resp BP Pulse Ox
97.5 F 68 18 137/83 99
08/03/24 07:20 08/03/24 08:06 08/03/24 07:20 08/03/24 08:06 08/03/24 07:20
I&O
08/02/24 08/03/24 08/04/24
06:59 06:59 06:59
Intake Total 480 / 480 2640 / 2640
Balance 480 / 480 2640 / 2640
Data Reviewed
-
Total Time Spent with Patient (in minutes): 55
[2024-08-03 11:30] VITALS: BP 143/84
--- NOTE | 2024-08-03 11:49 | W.PN.NEPH.PH ---
Today's Communication / Plan
-
follow hgb
Assessment/Plan
-
64-year-old woman with history of CKD with baseline creatinine of 2, hypertension presenting to the emergency department with abnormal blood work. she's found to have hyperkalemia and a creatinine of 4+. She found have urinary tract infection
growing E. coli. She's had recurrent infections and has been treated since May with antibiotics with no resolution. She is also on SGLT2 inhibitor
Impression:
CVA (Right Cerebellar and Brainstem Hemorrhage)
Essential Hypertension
acute on CKD Stage IV
Anemia of Chronic Disease
UTI
Plan:
Continue medications for hypertension remain off ARB
Continue bicarbonate
Antibiotics for UTI per primary team
She can never use Farxiga or Jardiance again
we discussed at length potassium restricted diet as well as use of Lokelma as an outpatient. She has been taking this 3 times weekly. I will give her a dose today. Her primary issue with Lokelma was its cost. However, a potassium restricted diet
is less desired and she is willing to use more Lokelma if this may allow some liberalization of potassium in her diet
We also discussed at length regarding dialysis. She still needs to undergo modality training as well as transplant evaluation she has put this off many times in the past. I reiterated this with her and her .
I will except her blood pressure as it is for the time being. She often has very low systolic blood pressure readings in the morning which I will also like to avoid if possible.
We will follow her hemoglobin
Total time 45 minutes
-
-
Date of Service: August 03, 2024
CC / HPI / ROS
-
Chief Complaint:
BHAVANI
History of Present Illness:
on ABx for UTI E. coli
BHAVANI/Cr down to 3.2
Hgb lower at 7.4
BP stable on multidrug regimen
K in normal range
acidosis persists
Review of Systems: .
No chest pain or shortness of breath no dysuria or frequency
Labs
-
Labs:
WBC 5.4 10^3/uL (4.8-10.8) 08/03/24 08:21
RBC 2.36 10^6/uL (4.20-5.40) L 08/03/24 08:21
Hgb 7.4 g/dL (12.0-16.0) L 08/03/24 08:21
Hct 23.5 % (37.0-47.0) L 08/03/24 08:21
Plt Count 241 10^3/uL (130-400) 08/03/24 08:21
Sodium 143 mmol/L (135-145) 08/03/24 08:21
Potassium 5.0 mmol/L (3.5-5.1) 08/03/24 08:21
Chloride 113 mmol/L (98-107) H 08/03/24 08:21
Carbon Dioxide 17 mmol/L (22-30) L 08/03/24 08:21
BUN 55 mg/dl (7-17) H 08/03/24 08:21
Creatinine 3.2 mg/dL (0.6-1.0) H 08/03/24 08:21
eGFR 15.48 08/03/24 08:21
Glucose 100 mg/dl (70-99) H 08/03/24 08:21
Calcium 8.5 mg/dl (8.4-10.2) 08/03/24 08:21
Albumin 3.7 g/dl (3.5-5.0) 07/31/24 12:26
Physical Exam
-
Vital Signs:
Vital Signs
Temp Pulse Resp BP Pulse Ox
97.9 F 76 14 143/84 99
08/03/24 11:30 08/03/24 11:30 08/03/24 11:30 08/03/24 11:30 08/03/24 11:30
Cardiovascular:: Regular rate and rhythm
Respiratory:: Bilateral: CTA
Lung Excursion:: Normal
Abdomen:: Nontender and Soft
Bowel Sounds:: Normal
Extremity Edema:: None: Bilateral:
[2024-08-03] MEDS: LOKELMA 10 GRAM PO (12:25)
--- NOTE | 2024-08-03 13:58 | CM ---
Patient seen bedside.
patient denies any home care needs.
Per patient possible d/c tomorrow.
Im completed.
Spouse will transport.
Plan:home no needs anticipated
[2024-08-03] MEDS: STERILE WATER FOR INJECTION 10 ML IV (15:29)
[2024-08-03] MEDS: ROCEPHIN 1000 MG IV (15:30)
[2024-08-03 15:37] VITALS: BP 149/91
[2024-08-03 19:00] VITALS: BP 152/96
[2024-08-03 23:00] VITALS: BP 149/89
[2024-08-04 03:00] VITALS: BP 165/106
--- NOTE | 2024-08-04 03:10 | PTCARENOTE ---
Pt agitated and upset about roommate keeping her awake, and constantly making noise. Pt offered ear plugs but refused. Offered pt the option to move to a new room, pt declined changing rooms at this time. Emotional support provided. Instructed pt to
let us know if she changes her mind about switching rooms. Call rolon in reach. Will continue to monitor.
[2024-08-04 06:00] VITALS: BMI 16.1
[2024-08-04 07:27] LABS: % Basophils 0.9 % (0-2); % Eosinophils 3.8 % (0-6); % Immature Granulocytes 1.4 % (0-0.5); % Lymphocytes 20.8 % (20.5-51.1); % Monocytes 6.5 % (1.7-9.3); % Neutrophils 66.6 % (42.2-75.2); Absolute Basophils 0.1 10^3/uL (0-0.2); Absolute Eosinophils 0.2 10^3/uL (0-0.7); Absolute Immature Granulocytes 0.1 10^3/uL (0-0.05); Absolute Lymphocytes 1.2 10^3/uL (1.2-3.4); Absolute Monocytes 0.4 10^3/uL (0.1-0.6); Absolute Neutrophils 3.7 10^3/uL (1.4-6.5); Hematocrit 22.5 % (37.0-47.0); Hemoglobin 7.5 g/dL (12.0-16.0); Mean Corp Hgb Conc. 33.3 g/dL (33.0-37.0); Mean Corpuscular Hgb 31.4 pg (27.0-31.0); Mean Corpuscular Volume 94.1 fL (81.0-99.0); Mean Platelet Volume 11.3 fL (7.4-10.4); Nucleated Red Blood Cells % 0 %; Platelet Count 201 10^3/uL (130-400); Red Blood Cell Count 2.39 10^6/uL (4.20-5.40); Red Cell Dist. Width 14.1 % (11.5-14.5); White Blood Cell Count 5.5 10^3/uL (4.8-10.8)
[2024-08-04 07:38] VITALS: BP 160/94
[2024-08-04 07:52] LABS: Blood Urea Nitrogen 51 mg/dl (7-17); Calcium 8.8 mg/dl (8.4-10.2); Carbon Dioxide 19 mmol/L (22-30); Chloride 111 mmol/L (98-107); Estimated Creatinine Clearance 13 ml/min; Glucose 99 mg/dl (70-99); Potassium 4.4 mmol/L (3.5-5.1); Sodium 140 mmol/L (135-145); eGFR 16.08
[2024-08-04] MEDS: CATAPRES 0.1 MG PO (07:59)
[2024-08-04] MEDS: SODIUM BICARBONATE 650 MG PO (07:59)
[2024-08-04] MEDS: CARDURA 2 MG PO (07:59)
[2024-08-04] MEDS: VITAMIN B-12 1000 MCG PO (07:59)
[2024-08-04] MEDS: TRANDATE 400 MG PO (07:59)
[2024-08-04] MEDS: MYCOSTATIN ORAL SUSPENSION 5 ML PO (07:59)
--- NOTE | 2024-08-04 09:53 | W.PN.HOSP.TC ---
Today's Communication/Plan
-
dc home
OP f/u
Assessment / Plan
Assessment / Plan
General: Comfortable and Conversant
HEENT: Anicteric and Other (Lips and Tongue appear dry; White material noted on side of tongue and corners of mouth)
Respiratory: Clear and Non Labored Respirations
Cardiac: S1/S2 and Regular Rhythm
GI: Soft and Non Tender
Rectal: Deferred by Provider
Genito-urinary: No costovertebral tender
Musculoskeletal: No Clubbing and No Cyanosis
Skin: Warm and Dry
Neuro: Awake, Alert, Oriented and Nonfocal/grossly intact
Psych: Calm
Hyperkalemia / Acute Kidney Injury on CKD IV
Anion gap metabolic acdiosis
-Patient given insulin + dextrose in ED for hyperkalemia
-K downtrended but up mildly now. Lokelma ordered
-received IVF per nephro.
-Start po bicarb
-renal US negative for obstruction
-Cr stabilizing and improved to 3.1
-on lokelma 10mg TID weekly at home
-Consult Nephrology
E.coli Urinary Tract Infection
-Conitnue ceftriaxone and po keflex on dc
Possible Thrush
-Start nystatin,
Essential Hypertension
-Continue doxazosin and labetalol and Clonidine
Chronic Anemia - Hgb slightly lower than previously
-B12 low and started on supplementation
-may need EPO
-FOBT pending
-Had C-scope few years ago but poor prep.
-transfuse for Hgb <7. LDH and retic normal. Hapto pending. doubt hemolysis. No luminal bleeding noted so far
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
DVT proph: SCDs
Code Status: Full Code
D/W with spouse at bedside in details on 08/02/24.
More than 30 minutes spent in discharge including
Final examination of the patient
Summarizing hospital stay
Instructions for continuing care to all relevant caregivers
Preparation of discharge records, prescriptions, and referral forms
Total time spent (in minutes): 55
Anticipated Discharge: Today
Subjective/Interval History
-
Date of Service: August 04, 2024
states feeling tired
tolerating diet
Objective Data
-
Labs:
Laboratory Results
08/04/24
07:01
WBC 5.5
Hgb 7.5 L
Hct 22.5 L
Plt Count 201
Sodium 140
Potassium 4.4
Chloride 111 H
Carbon Dioxide 19 L
BUN 51 H
Creatinine 3.1 H
Glucose 99
Calcium 8.8
Vital Signs:
Vital Signs
Temp Pulse Resp BP Pulse Ox
98.3 F 73 16 160/94 97
08/04/24 07:38 08/04/24 07:38 08/04/24 07:38 08/04/24 07:38 08/04/24 07:38
I&O
08/03/24 08/04/24 08/05/24
06:59 06:59 06:59
Intake Total 2640 / 2640 480 / 480 360 / 360
Balance 2640 / 2640 480 / 480 360 / 360
--- NOTE | 2024-08-04 09:55 | W.DCSUMMARY ---
Discharge Summary
Discharge Data
Date of Admission: 07/31/24
Date of Discharge: 08/04/24
-
Pending Results: No
Hospital Course
64 female past medical history of CKD stage IV urinary urgency, hypertension, anemia, stroke who was presented with abnormal lab value.� Patient was found to have acute kidney injury on chronic kidney disease.� Renal ultrasound was negative for
obstruction.� Patient was received IV fluid resuscitation.� Patient creatinine started to stabilize.� Patient was eval by nephrology.� Patient also with hyperkalemia received Lokelma.� Also with anion gap metabolic acidosis and started on p.o.
bicarbonate.� Also was found to have a E. coli UTI and was started on ceftriaxone transition to p.o. Keflex on discharge.� Per nephrology patient should not be restarted on Jardiance or Farxiga in the future.� Patient also with anemia and was found
to have a low B12 and was started on supplementation.� Hemolysis panel negative.� No bowel movements.� No luminal bleeding was noted. Discussed with nephrology okay for discharge home. Nephrology office will call patient with appointment.
Discharge Plan
-
Patient Disposition: Home (Routine Discharge)
Discharge Diagnosis/Procedures: Acute kidney injury on chronic kidney disease stage IV
Anemia
Anion gap metabolic acidosis
E. coli urinary tract infection
Vitamin B12 deficency
Condition: Fair
Diet: Other diet
Additional Diets: low potassium diet.
Activity: As tolerated
Driving Restrictions: As prior to admission
Blood Work: cbc and bmp in 1 week via primary doctor.
Referrals:
Bari Pugh MD [Active] - None
()
Marily Magana MD [Family Provider] - in less than 1 week
Prescriptions:
New
sodium bicarbonate 650 mg Tablet
650 mg PO TID Qty: 30 0RF
cyanocobalamin (vitamin B-12) 1,000 mcg Tablet
1,000 mcg PO DAILY Qty: 30 0RF
cephalexin 500 mg capsule
500 mg PO BID Qty: 8 0RF
Continued
labetalol 200 mg Tablet
400 mg PO TID
doxazosin 2 mg Tablet
2 mg PO BID
clonidine HCl 0.1 mg Tablet
0.1 mg PO BID
Lokelma 10 gram Powder In Packet
10 g PO MOWEFR
Patient Comments:
TID WEEKLY
Discharge Orders:
Discharge Patient (As Directed); Ordered 08/04/24
Ordered By: Iain Ramirez
Discharge Date and Time
Print Language: MALAWIAN
--- NOTE | 2024-08-04 10:23 | CM ---
CM reviewed medical records. Plan for discharge to home. NO needs noted
PLAN:home no needs.
[2024-08-04 11:15] VITALS: BP 124/81
--- NOTE | 2024-08-04 11:44 | W.PN.NEPH.PH ---
Today's Communication / Plan
-
dc
Assessment/Plan
-
64-year-old woman with history of CKD with baseline creatinine of 2, hypertension presenting to the emergency department with abnormal blood work. she's found to have hyperkalemia and a creatinine of 4+. She found have urinary tract infection
growing E. coli. She's had recurrent infections and has been treated since May with antibiotics with no resolution. She is also on SGLT2 inhibitor
Impression:
CVA (Right Cerebellar and Brainstem Hemorrhage)
Essential Hypertension
acute on CKD Stage IV
Anemia of Chronic Disease
UTI
Plan:
Continue medications for hypertension remain off ARB
Continue bicarbonate, we can refill/discuss at next OV
Antibiotics for UTI per primary team
She can never use Farxiga or Jardiance again
Lokelma 3 times weekly
Reiterated that she needs to call for kidney options training and transplant evaluation
For discharge
Our office will call for follow-up
-
-
Date of Service: August 04, 2024
CC / HPI / ROS
-
Chief Complaint:
BHAVANI
History of Present Illness:
on ABx for UTI E. coli
BHAVANI/Cr down to 3.1
Hgb stable at 7.5
BP stable on multidrug regimen
K in normal range
acidosis persists
Review of Systems: .
No chest pain or shortness of breath no dysuria or frequency
Labs
-
Labs:
WBC 5.5 10^3/uL (4.8-10.8) 08/04/24 07:01
RBC 2.39 10^6/uL (4.20-5.40) L 08/04/24 07:01
Hgb 7.5 g/dL (12.0-16.0) L 08/04/24 07:01
Hct 22.5 % (37.0-47.0) L 08/04/24 07:01
Plt Count 201 10^3/uL (130-400) 08/04/24 07:01
Sodium 140 mmol/L (135-145) 08/04/24 07:01
Potassium 4.4 mmol/L (3.5-5.1) 08/04/24 07:01
Chloride 111 mmol/L (98-107) H 08/04/24 07:01
Carbon Dioxide 19 mmol/L (22-30) L 08/04/24 07:01
BUN 51 mg/dl (7-17) H 08/04/24 07:01
Creatinine 3.1 mg/dL (0.6-1.0) H 08/04/24 07:01
eGFR 16.08 08/04/24 07:01
Glucose 99 mg/dl (70-99) 08/04/24 07:01
Calcium 8.8 mg/dl (8.4-10.2) 08/04/24 07:01
Albumin 3.7 g/dl (3.5-5.0) 07/31/24 12:26
Physical Exam
-
Vital Signs:
Vital Signs
Temp Pulse Resp BP Pulse Ox
98.3 F 73 16 160/94 97
08/04/24 07:38 08/04/24 07:38 08/04/24 07:38 08/04/24 07:38 08/04/24 07:38
Cardiovascular:: Regular rate and rhythm
Respiratory:: Bilateral: Coarse
Lung Excursion:: Normal
Abdomen:: Nontender and Soft
Bowel Sounds:: Normal
Extremity Edema:: None: Bilateral:
[2024-08-04 17:30] LABS: Haptoglobin 303 mg/dL (30-200)
== END 2024-08-04 12:14 | disposition home or self-care (01) | DRG 683 ==
LOC: 1 ACUTE 16:24
PROVIDERS: Physician Assistant Medical; Student in an Organized Health Care Education/Training Program; ADMITTING PHYSICIAN Hospitalist; CONSULT PHYSICIAN Internal Medicine Nephrology; EMERGENCY PHYSICIAN Student in an Organized Health Care Education/Training Program; FAMILY PHYSICIAN Family Medicine
DX: N17.9 Acute kidney failure, unspecified (principal); E87.20 Acidosis, unspecified; N39.0 Urinary tract infection, site not specified; R64 Cachexia; I12.9 Hypertensive chronic kidney disease with stage 1 through stage 4 chronic kidney disease, or unspecified chronic kidney disease; Z68.1 Body mass index [BMI] 19.9 or less, adult; N18.4 Chronic kidney disease, stage 4 (severe); E87.5 Hyperkalemia; B96.20 Unspecified Escherichia coli [E. coli] as the cause of diseases classified elsewhere; D63.1 Anemia in chronic kidney disease; Z86.73 Personal history of transient ischemic attack (TIA), and cerebral infarction without residual deficits
CPT/HCPCS: 76770; 80048; 80053; 81003; 81015; 81099; 82570; 82607; 82728; 82746; 82962; 83010; 83540; 83550; 83615; 83735; 84132; 84300; 85025; 85027; 85045; 86803; 86850; 86900; 86901; 87077; 87086; 87186; 93005; 96374; 96375; 99285

== ENCOUNTER → 2024-08-25 10:34 | Outpatient (REF) | payer MEDICARE, SELFPAY ==
[2024-08-25 11:16] LABS: % Basophils 0.7 % (0-2); % Immature Granulocytes 0.2 % (0-0.5); % Monocytes 9.1 % (1.7-9.3); Absolute Eosinophils 0.3 10^3/uL (0-0.7); Absolute Monocytes 0.4 10^3/uL (0.1-0.6); Absolute Neutrophils 2.8 10^3/uL (1.4-6.5); Hematocrit 27.8 % (37.0-47.0); Hemoglobin 8.8 g/dL (12.0-16.0); Mean Corp Hgb Conc. 31.7 g/dL (33.0-37.0); Mean Corpuscular Hgb 31.5 pg (27.0-31.0); Mean Corpuscular Volume 99.6 fL (81.0-99.0); Mean Platelet Volume 12.3 fL (7.4-10.4); Nucleated Red Blood Cells % 0 %; Platelet Count 130 10^3/uL (130-400); Red Blood Cell Count 2.79 10^6/uL (4.20-5.40); Red Cell Dist. Width 15.1 % (11.5-14.5); White Blood Cell Count 4.5 10^3/uL (4.8-10.8)
[2024-08-25 12:19] LABS: Albumin 4.4 g/dl (3.5-5.0); Blood Urea Nitrogen 52 mg/dl (7-17); Calcium 9.4 mg/dl (8.4-10.2); Carbon Dioxide 20 mmol/L (22-30); Chloride 109 mmol/L (98-107); Glucose 106 mg/dl (70-99); Phosphorus 5.1 mg/dl (2.5-4.5); Potassium 5.2 mmol/L (3.5-5.1); Sodium 140 mmol/L (135-145); eGFR 16.08
== END ==
LOC: REG 10:34
PROVIDERS: ATTENDING PHYSICIAN Specialist; FAMILY PHYSICIAN Family Medicine
DX: R30.0 Dysuria (principal); I10 Essential (primary) hypertension; E78.5 Hyperlipidemia, unspecified; N18.4 Chronic kidney disease, stage 4 (severe); D64.9 Anemia, unspecified
CPT/HCPCS: 36415; 80069; 85025; 87077; 87086; 87186

== ENCOUNTER → 2024-09-11 11:56 | Outpatient (REF) | payer MEDICARE, SELFPAY ==
[2024-09-11 12:32] LABS: Hematocrit 28.2 % (37.0-47.0); Hemoglobin 8.8 g/dL (12.0-16.0)
[2024-09-11 12:38] LABS: Urine Albumin 3+ (Neg - Trace); Urine Bilirubin Negative (Negative); Urine Character Clear (Clear); Urine Color Yellow; Urine Glucose Negative (Negative); Urine Ketone Negative (Negative); Urine Leukocyte 3+ (Negative); Urine Nitrite Positive (Negative); Urine Occult Blood 2+ (Negative); Urine Urobilinogen Negative (Neg - 1+)
[2024-09-11 13:29] LABS: Albumin 4.8 g/dl (3.5-5.0); Blood Urea Nitrogen 47 mg/dl (7-17); Calcium 9.8 mg/dl (8.4-10.2); Carbon Dioxide 21 mmol/L (22-30); Chloride 105 mmol/L (98-107); Glucose 113 mg/dl (70-99); Phosphorus 4.3 mg/dl (2.5-4.5); Potassium 5.2 mmol/L (3.5-5.1); Sodium 138 mmol/L (135-145); eGFR 20.82
[2024-09-11 14:24] LABS: Urine Red Blood Cell 0-2 /HPF (0-2)
[2024-09-11 14:25] LABS: Urine Bacteria Many (Negative); Urine White Cell 60-70 /HPF (0-5)
== END ==
LOC: REG 11:56
PROVIDERS: ATTENDING PHYSICIAN Specialist; FAMILY PHYSICIAN Family Medicine
DX: E78.5 Hyperlipidemia, unspecified (principal); I10 Essential (primary) hypertension; N39.0 Urinary tract infection, site not specified; N30.01 Acute cystitis with hematuria
CPT/HCPCS: 36415; 80069; 81003; 81015; 85014; 85018; 87077; 87086; 87186

== ENCOUNTER → 2024-11-23 07:06 | Outpatient (REF) | payer MEDICARE, SELFPAY ==
[2024-11-23 07:38] LABS: Hematocrit 30.2 % (37.0-47.0); Hemoglobin 9.8 g/dL (12.0-16.0)
[2024-11-23 08:26] LABS: Albumin 4.8 g/dl (3.5-5.0); Blood Urea Nitrogen 53 mg/dl (7-17); Calcium 9.5 mg/dl (8.4-10.2); Carbon Dioxide 24 mmol/L (22-30); Chloride 112 mmol/L (98-107); Glucose 106 mg/dl (70-99); Phosphorus 4.5 mg/dl (2.5-4.5); Sodium 144 mmol/L (135-145); eGFR 18.98
== END ==
LOC: REG 07:06
PROVIDERS: ATTENDING PHYSICIAN Specialist
DX: I10 Essential (primary) hypertension (principal)
CPT/HCPCS: 36415; 80069; 85014; 85018

== ENCOUNTER → 2024-12-22 09:23 | Outpatient (REF) | payer MEDICARE, SELFPAY | LOC: HWWDC 09:23 | PROVIDERS: ATTENDING PHYSICIAN Family Medicine | DX: Z78.0 Asymptomatic menopausal state (principal); Z12.31 Encounter for screening mammogram for malignant neoplasm of breast | CPT/HCPCS: 77063; 77067; 77080 ==

== ENCOUNTER 2024-12-25 06:08 | Day surgery (SDC) | payer MEDICARE, SELFPAY ==
[2024-12-25 08:48] VITALS: BMI 17.0
[2024-12-25 08:49] VITALS: BMI 17.0
[2024-12-25 09:03] VITALS: BP 168/97
[2024-12-25 11:01] VITALS: BP 153/93
[2024-12-25 11:15] VITALS: BP 153/88
== END 2024-12-25 11:39 | disposition home or self-care (01) ==
LOC: SDS 06:08
PROVIDERS: ATTENDING PHYSICIAN Internal Medicine Gastroenterology
DX: Z12.11 Encounter for screening for malignant neoplasm of colon (principal); D12.3 Benign neoplasm of transverse colon; Q43.8 Other specified congenital malformations of intestine; K56.2 Volvulus; K62.89 Other specified diseases of anus and rectum
CPT/HCPCS: 45385; 45381; 88305

== ENCOUNTER 2025-02-15 10:45 | Outpatient (RCR) | payer MEDICARE, SELFPAY ==
[2025-02-15 11:08] VITALS: BP 172/100
[2025-02-15] MEDS: EVENITY 105 MG SC ×2 (11:10→11:11)
== END 2025-02-16 09:45 | disposition home or self-care (01) ==
LOC: OID 10:45
PROVIDERS: ATTENDING PHYSICIAN Family Medicine
DX: M81.0 Age-related osteoporosis without current pathological fracture (principal)
CPT/HCPCS: 96372; J3111

== ENCOUNTER → 2025-02-18 12:54 | Outpatient (REF) | payer MEDICARE, SELFPAY | LOC: RCS 12:54 | PROVIDERS: ATTENDING PHYSICIAN Transplant Surgery; FAMILY PHYSICIAN Family Medicine | DX: N18.6 End stage renal disease (principal); Z01.818 Encounter for other preprocedural examination; G93.89 Other specified disorders of brain; I10 Essential (primary) hypertension; Z86.73 Personal history of transient ischemic attack (TIA), and cerebral infarction without residual deficits; E78.5 Hyperlipidemia, unspecified; N28.89 Other specified disorders of kidney and ureter; N18.4 Chronic kidney disease, stage 4 (severe) | CPT/HCPCS: 93306 ==

== ENCOUNTER → 2025-03-01 10:18 | Outpatient (REF) | payer MEDICARE, SELFPAY ==
[2025-03-01 11:14] LABS: Albumin 4.3 g/dl (3.5-5.0); Blood Urea Nitrogen 52 mg/dl (7-17); Calcium 9.2 mg/dl (8.4-10.2); Carbon Dioxide 24 mmol/L (22-30); Chloride 110 mmol/L (98-107); Glucose 106 mg/dl (70-99); Potassium 4.5 mmol/L (3.5-5.1); Sodium 141 mmol/L (135-145); eGFR 17.32
== END ==
LOC: REG 10:18
PROVIDERS: ATTENDING PHYSICIAN Specialist; FAMILY PHYSICIAN Family Medicine
DX: I10 Essential (primary) hypertension (principal)
CPT/HCPCS: 36415; 80069

== ENCOUNTER 2025-03-19 10:38 | Outpatient (RCR) | payer MEDICARE, SELFPAY ==
[2025-03-19 10:58] VITALS: BP 188/112
[2025-03-19] MEDS: EVENITY 105 MG SC ×2 (11:08→11:09)
== END 2025-04-13 13:18 | disposition home or self-care (01) ==
LOC: OID 10:38
PROVIDERS: ATTENDING PHYSICIAN Family Medicine
DX: M81.0 Age-related osteoporosis without current pathological fracture (principal)
CPT/HCPCS: 96372; J3111

== ENCOUNTER → 2025-04-07 07:31 | Outpatient (REF) | payer MEDICARE, SELFPAY ==
[2025-04-07 08:20] LABS: Hematocrit 30.4 % (37.0-47.0); Hemoglobin 9.8 g/dL (12.0-16.0); Mean Corp Hgb Conc. 32.2 g/dL (33.0-37.0); Mean Corpuscular Volume 97.4 fL (81.0-99.0); Nucleated Red Blood Cells % 0 %; Platelet Count 122 10^3/uL (130-400); Red Cell Dist. Width 12.7 % (11.5-14.5)
[2025-04-07 09:07] LABS: Albumin 4.7 g/dl (3.5-5.0); Blood Urea Nitrogen 61 mg/dl (7-17); Calcium 9.2 mg/dl (8.4-10.2); Carbon Dioxide 22 mmol/L (22-30); Chloride 110 mmol/L (98-107); Glucose 102 mg/dl (70-99); Iron 104 ug/dl (37-170); Potassium 4.8 mmol/L (3.5-5.1); Sodium 140 mmol/L (135-145); eGFR 17.32
[2025-04-07 09:25] LABS: Total Iron Binding Capacity 301 ug/dl (265-497)
[2025-04-07 09:33] LABS: Ferritin 55.2 ng/ml (11.1-264.0)
== END ==
LOC: REG 07:31
PROVIDERS: ATTENDING PHYSICIAN Specialist; FAMILY PHYSICIAN Family Medicine
DX: I10 Essential (primary) hypertension (principal); N18.4 Chronic kidney disease, stage 4 (severe)
CPT/HCPCS: 36415; 80069; 82570; 82728; 83540; 83550; 83970; 84156; 85025

== ENCOUNTER 2025-04-19 10:38 | Outpatient (RCR) | payer MEDICARE, SELFPAY ==
--- NOTE | 2025-04-16 11:36 | PTCARENOTE ---
0900- Pt scheduled today for monthly Evenity injection. Pt also has orders to received Retacrit injection. Pt called concerned with patients elevated blood pressure of 180/110, questioning if patient should receive Evenity today. Pt's
unaware of start of Retacrit, some confusion regarding lab work.
Call placed to Dr. Pugh office spoke with Gayatri,the schedular for Retacrit injections.Explained patient concerns and confusion over start of Retacrit.
Dr. Pugh contacted patient regarding elevated BP adding additional medication. Dr. Pugh was unaware patient had not received Retacrit and would like for it to be scheduled for this Saturday04/19/25 followed by lab work in two weeks. Dr. Pugh could not
comment on the Evenity and if patient should receive it today
Call placed to Dr. Magana spoke with office nurse Krystina relayed patient concerns, including communication with Dr. Pugh office.
Call back received from Dr. Magana office would like to hold Evenity for now. (will fax hold order) Will consult with nephrology to determine future use.
1130-Pt arrived for appointment> Explained communication with physicians and postponing Evenity today. Appointment made for Saturday to start Retacrit. Patient has understanding of safety concersn. Physicians to evaluate.
[2025-04-19 10:50] VITALS: BP 180/110
--- NOTE | 2025-04-19 11:35 | PTCARENOTE ---
Addendum entered by Argelia Stringer RN 04/19/25 12:04:
Reply from Dr. Pugh to proceed with Retacrit, H and H in two weeks. Pt education provided to patient. Pt to follow up with Dr. Magana for treatment with Evenity
Original Note:
1050-pt here today for initiation of Reticrit. Manual BP check is 180/110. Pt is awaiting new start of Nifedipine, medication has not arrived yet. Dr Pugh notified via tiger text. Waiting for instructions as to how to proceed.
[2025-04-19] MEDS: RETACRIT 20000 UNITS SC (11:59)
== END 2025-05-14 23:59 | disposition home or self-care (01) ==
LOC: OID 10:38
PROVIDERS: Specialist; ATTENDING PHYSICIAN Family Medicine
DX: M81.0 Age-related osteoporosis without current pathological fracture (principal)
CPT/HCPCS: 36415; 96372; Q5106

== ENCOUNTER → 2025-05-10 07:36 | Outpatient (REF) | payer MEDICARE, SELFPAY ==
[2025-05-10 08:45] LABS: Hematocrit 32.0 % (37.0-47.0); Hemoglobin 10.0 g/dL (12.0-16.0); Mean Corp Hgb Conc. 31.3 g/dL (33.0-37.0); Mean Corpuscular Volume 99.1 fL (81.0-99.0); Platelet Count 141 10^3/uL (130-400); Red Cell Dist. Width 13.1 % (11.5-14.5)
[2025-05-10 09:15] LABS: ALT (SGPT) 22 U/L (0-35); AST (SGOT) 23 U/L (14-36); Albumin 4.7 g/dl (3.5-5.0); Alkaline Phosphatase 107 U/L (38-126); Blood Urea Nitrogen 57 mg/dl (7-17); Calcium 9.3 mg/dl (8.4-10.2); Carbon Dioxide 23 mmol/L (22-30); Chloride 109 mmol/L (98-107); Glucose 101 mg/dl (70-99); Potassium 4.3 mmol/L (3.5-5.1); Sodium 137 mmol/L (135-145); Total Protein 7.2 g/dl (6.3-8.2); Very Low Density Lipoprotein 13 mg/dl (0-30); eGFR 15.39
[2025-05-10 09:27] LABS: HDL Cholesterol 122 mg/dl; LDL Cholesterol, Calculated 157 mg/dl
== END ==
LOC: REG 07:36
PROVIDERS: ATTENDING PHYSICIAN Specialist; FAMILY PHYSICIAN Family Medicine; REFERRING PHYSICIAN Internal Medicine Cardiovascular Disease
DX: I10 Essential (primary) hypertension (principal); Z01.810 Encounter for preprocedural cardiovascular examination; I63.89 Other cerebral infarction; N18.4 Chronic kidney disease, stage 4 (severe)
CPT/HCPCS: 36415; 80053; 80061; 85027

== ENCOUNTER → 2025-06-04 09:43 | Outpatient (REF) | payer MEDICARE, SELFPAY ==
[2025-06-04 11:26] LABS: Hematocrit 31.1 % (37.0-47.0); Hemoglobin 10.1 g/dL (12.0-16.0)
[2025-06-04 12:01] LABS: Albumin 4.7 g/dl (3.5-5.0); Blood Urea Nitrogen 63 mg/dl (7-17); Calcium 9.8 mg/dl (8.4-10.2); Carbon Dioxide 27 mmol/L (22-30); Chloride 103 mmol/L (98-107); Glucose 94 mg/dl (70-99); Potassium 4.4 mmol/L (3.5-5.1); Sodium 136 mmol/L (135-145); eGFR 15.98
== END ==
LOC: REG 09:43
PROVIDERS: ATTENDING PHYSICIAN Specialist; FAMILY PHYSICIAN Family Medicine
DX: I10 Essential (primary) hypertension (principal); N18.4 Chronic kidney disease, stage 4 (severe); D64.9 Anemia, unspecified; E78.5 Hyperlipidemia, unspecified
CPT/HCPCS: 36415; 80069; 85014; 85018